=== PATIENT | female | born 1990 | race Hispanic/Latino ===

== ENCOUNTER 2021-11-08 11:48 | Observation (INO) | payer BC ==
[~2021-11-08] VITALS: Ht 175.3 cm; Wt 134.7 kg
[2021-11-08 12:52] LABS: APPEARANCE,URINE Clear (CLEAR); BILIRUBIN,URINE Negative (NEGATIVE); COLOR,URINE Yellow (YELLOW); GLUCOSE, URINE (UA) Negative (NEGATIVE); KETONES,URINE Negative (NEGATIVE); LEUKOCYTE ESTERASE ,URINE Negative (NEGATIVE); NITRATE,URINE Negative (NEGATIVE); OCCULT BLOOD,URINE Trace (NEGATIVE); PROTEIN,URINE Negative (NEGATIVE); UROBILINOGEN,URINE 0.2 mg/dL (0.2-1.0)
== END 2021-11-08 14:38 | disposition home or self-care (01) ==
LOC: EDH 11:48 → LDH 11:49 → EDH 12:01
PROVIDERS: ADMIT Obstetrics & Gynecology; ATTEND Obstetrics & Gynecology
DX: O42.913 Preterm premature rupture of membranes, unspecified as to length of time between rupture and onset of labor, third trimester (principal); Z3A.34 34 weeks gestation of pregnancy
CPT/HCPCS: 59025; 76805; 81003; G0378 ×2

== ENCOUNTER 2021-12-05 11:00 | Inpatient (IN) | payer BC ==
[~2021-12-05] VITALS: Ht 175.3 cm; Wt 143.8 kg
[2021-12-08] MEDS ORDERED: CALDOLOR 800MG+NS 250ML 250 ML IV PRN (08:00)
[2021-12-08] MEDS ORDERED: LACTATED RINGERS 1000ML 1,000 ML IV SCH (08:00)
[2021-12-08] MEDS ORDERED: CEFAZOLIN SODIUM 1 GM VIAL IVP PRN (08:00)
[2021-12-08 08:11] LABS: HEMATOCRIT 34.5 % (36-48); MEAN CORPUSCULAR HEMOGLOBIN 27.3 pg (27.0-33.0); MEAN CORPUSCULAR VOLUME 82.7 fL (79-99); RED BLOOD CELL COUNT(AUTO) 4.17 MIL/uL (4.00-5.50); RED CELL DISTRIBUTION WIDTH 14.1 % (11.0-15.5); WHITE BLOOD COUNT (AUTO) 9.6 K/uL (4.8-10.8)
[2021-12-08] MEDS ORDERED: METHYLERGONOVINE MALEATE 0.2 MG/1 ML ML ONE (08:45)
[2021-12-08] MEDS ORDERED: ONDANSETRON 4MG INJ ONE (08:47)
[2021-12-08] MEDS ORDERED: OXYTOCIN 10 USP UNITS/ML ONE (08:49)
[2021-12-08] MEDS ORDERED: MORPHINE PF 100MG/10ML AMP IV ONE (09:03)
[2021-12-08] MEDS ORDERED: FENTANYL CITRATE PF 50 MCG/1 ML 2ML VIAL ONE (09:04)
[2021-12-08] MEDS ORDERED: CEFAZOLIN SODIUM 3 GM VIAL IV ONE (09:05)
[2021-12-08 09:08] LABS: RAPID PLASMA REAGIN NONREACTIVE (NONREACTIVE)
[2021-12-08] MEDS ORDERED: OXYTOCIN-LR 20 UNITS/1000 ML 1,000 ML IV ONE (09:08)
[2021-12-08] MEDS ORDERED: EPHEDRINE SULFATE 50 MG/ML AMPULE ONE (09:28)
[2021-12-08] MEDS ORDERED: EPHEDRINE SULFATE 50 MG/ML AMPULE IVP PRN (10:30)
[2021-12-08] MEDS ORDERED: ONDANSETRON 4MG INJ IVP PRN (10:30)
[2021-12-08] MEDS ORDERED: NALOXONE HCL 0.4 MG/1 ML ML IVP PRN ×3 (10:30)
[2021-12-08] MEDS ORDERED: LORATADINE 10 MG TABLET PO PRN (10:30)
[2021-12-08] MEDS ORDERED: DiphenhydrAMINE HCL 50 MG/ML VIAL IVP PRN (10:30)
[2021-12-08] MEDS ORDERED: MEPERIDINE-PF 75 MG/ML SYG IM PRN (11:00)
[2021-12-08] MEDS ORDERED: 0.9%NACL 10ML VIAL IVP PRN (11:00)
[2021-12-08] MEDS ORDERED: OXYTOCIN-LR 20 UNITS/1000 ML 1,000 ML IV PRN (11:00)
[2021-12-08] MEDS ORDERED: PROMETHAZINE HCL 25 MG/ML 1ML AMPULE IM PRN (11:00)
[2021-12-08 13:20] VITALS: BP 124/73
[2021-12-08] MEDS ORDERED: PNV1TABL17 PO (15:47)
[2021-12-08 16:05] VITALS: BP 130/71
[2021-12-08] MEDS: CALDOLOR 800MG+NS 250ML 250 ML IV SCH (18:42)
[2021-12-08] MEDS: DEXTROSE 5 %-0.45 % NACL 1,000 ML IV PRN (18:42)
[2021-12-08 19:50] VITALS: BP 110/57
[2021-12-08 23:05] VITALS: BP 94/71
[2021-12-09] VITALS (7 sets, daily range): BP systolic 101–130; BP diastolic 54–89
[2021-12-09] MEDS: DEXTROSE 5 %-0.45 % NACL 1,000 ML IV PRN (02:45)
[2021-12-09] MEDS: CALDOLOR 800MG+NS 250ML 250 ML IV SCH (02:45)
[2021-12-09] MEDS ORDERED: HYDROCODONE/ACETAMINOPHEN 5/325 MG TAB PO PRN (05:30)
[2021-12-09] MEDS ORDERED: ACETAMINOPHEN 500 MG TABLET PO PRN (05:30)
[2021-12-09 06:10] LABS: HEMATOCRIT 28.1 % (36-48); MEAN CORPUSCULAR HEMOGLOBIN 27.2 pg (27.0-33.0); MEAN CORPUSCULAR HGB CONC 32.4 g/dL (32.0-36.0); MEAN CORPUSCULAR VOLUME 83.9 fL (79-99); RED BLOOD CELL COUNT(AUTO) 3.35 MIL/uL (4.00-5.50); RED CELL DISTRIBUTION WIDTH 14.2 % (11.0-15.5); WHITE BLOOD COUNT (AUTO) 8.6 K/uL (4.8-10.8)
[2021-12-09] MEDS ORDERED: BISACODYL 10 MG SUPP.RECT RC PRN (08:00)
[2021-12-09] MEDS: DOCUSATE SODIUM 100 MG CAP PO SCH ×2 (09:09→20:55)
[2021-12-09] MEDS: SIMETHICONE 80 MG TAB.CHEW PO PRN ×2 (09:09→20:55)
[2021-12-09] MEDS: IBUPROFEN 800 MG TAB PO SCH ×2 (11:34→18:37)
[2021-12-09] MEDS: ACETAMINOPHEN WITH CODEINE 1 TAB TAB PO PRN (23:40)
[2021-12-10 03:07] VITALS: BP 111/69
[2021-12-10] MEDS: IBUPROFEN 800 MG TAB PO SCH ×2 (03:07→10:17)
[2021-12-10 07:30] VITALS: BP 111/67
[2021-12-10] MEDS: DOCUSATE SODIUM 100 MG CAP PO SCH (08:19)
[2021-12-10] MEDS: SIMETHICONE 80 MG TAB.CHEW PO PRN (08:19)
[2021-12-10] MEDS: ACETAMINOPHEN WITH CODEINE 1 TAB TAB PO PRN (08:21)
[2021-12-10] MEDS ORDERED: DOCU-116 PO (09:49)
[2021-12-10] MEDS ORDERED: IBUP-2077 PO (09:50)
[2021-12-10] MEDS ORDERED: ACET-2079 PO (09:51)
[2021-12-10 11:36] VITALS: BP 116/71
== END 2021-12-10 11:50 | disposition home or self-care (01) | DRG 788 ==
LOC: LDH 12-08 07:22 → WSH 12-08 13:09
PROVIDERS: ADMIT Obstetrics & Gynecology; ATTEND Obstetrics & Gynecology
PROC: 0U550ZZ Destruction of Right Fallopian Tube, Open Approach (ICD-10-PCS; 2021-12-08)
PROC: 10D00Z1 Extraction of Products of Conception, Low, Open Approach (ICD-10-PCS; principal; 2021-12-08 08:48)
DX: O32.1XX0 Maternal care for breech presentation, not applicable or unspecified (principal); O99.214 Obesity complicating childbirth; E66.01 Morbid (severe) obesity due to excess calories; Z3A.39 39 weeks gestation of pregnancy; Z37.0 Single live birth; N83.8 Other noninflammatory disorders of ovary, fallopian tube and broad ligament; O75.89 Other specified complications of labor and delivery
CPT/HCPCS: 36415; 59510; 85027; 86592; 86701; 86850; 86900; 86901; 87340; 87390; 87635; A4344; G0378; J0690; J1741; J2210; J2274; J2405; J2590; J3010; J3490; J7120